=== PATIENT | female | born 1980 ===

== ENCOUNTER 2017-06-12 16:42 | Emergency (ER) | payer OTHER ==
[2017-06-12 17:09] VITALS: O2SAT 100
[2017-06-12] MEDS ORDERED: Sodium Chloride 0.9% 1,000 ML IV ONE (17:25)
[2017-06-12 17:51] LABS: BASO # 0.1 K/uL (0.0-0.2); BASO % 0.9 % (0.0-2.0); EOS # 0.3 K/uL (0.0-0.7); EOS % 3.4 % (0.0-4.0); HEMOGLOBIN 8.9 g/dL (11.0-16.0); LYMPH # 2.4 K/uL (1.0-4.3); LYMPH % 30.7 % (20.0-40.0); MEAN CELL VOLUME 81.5 fL (81.0-99.0); MEAN CORPUSCULAR HEMOGLOBIN 27.4 pg (27.0-31.0); MEAN CORPUSCULAR HGB CONC 33.7 g/dL (33.0-37.0); MEAN PLATELET VOLUME 8.3 fL (7.2-11.7); MONO # 0.6 K/uL (0.0-0.8); MONO % 7.3 % (0.0-10.0); NEUT # 4.6 K/uL (1.8-7.0); NEUT % 57.7 % (50.0-75.0); RBC 3.24 Mil/uL (3.80-5.20); RED CELL DISTRIBUTION WIDTH 15.9 % (11.5-14.5); WHITE BLOOD COUNT 7.9 K/uL (4.8-10.8)
--- NOTE | 2017-06-12 17:57 | C.PDOC ---
History Of Present Illness 37-year-old female, PMHx includes iron deficiency anemia, CKD, and Diabetes, presents to the emergency department with complaints of low hgb. Patient states she has been feeling fatigued, she went to see Dr Petersen last week, who called her saying her hgb was low, and referred to ED for further evaluation. Patient states she finished her menses last week, and it was heavy. Additionally patient reports Dr Petersen prescribed Sodium bicarb for her kidneys and states the medication makes her feel jittery. Denies fever, nausea/vomiting, back pain or dizziness. Time Seen by Provider: 06/12/17 17:18 Chief Complaint (Nursing): Abnormal Labs History Per: Patient History/Exam Limitations: no limitations Onset/Duration Of Symptoms: Days Current Symptoms Are (Timing): Still Present Severity: Moderate Past Medical History Reviewed: Historical Data, Nursing Documentation, Vital Signs Vital Signs: Last Vital Signs Temp 98.1 F 06/12/17 17:07 Pulse 89 06/12/17 17:07 Resp 20 06/12/17 17:07 BP 156/74 H 06/12/17 17:07 Pulse Ox 100 06/12/17 18:32 - Medical History PMH: Asthma, HTN, Chronic Kidney Disease Family History: States: No Known Family Hx - Social History Hx Tobacco Use: No Hx Alcohol Use: No Hx Substance Use: No - Immunization History Hx Influenza Vaccination: No Review Of Systems Constitutional: Positive for: Weakness. Negative for: Fever Respiratory: Negative for: Shortness of Breath Gastrointestinal: Negative for: Vomiting, Abdominal Pain Musculoskeletal: Negative for: Back Pain Neurological: Negative for: Dizziness Physical Exam - Physical Exam Appears: Non-toxic, No Acute Distress Skin: Warm, Dry, No Rash Head: Atraumatic, Normacephalic Eye(s): bilateral: PERRL, EOMI, right: Normal Inspection, left: Scleral Icterus (ptosis) Nose: Normal Oral Mucosa: Moist Lips: Normal Appearing Neck: Normal ROM Chest: Symmetrical Cardiovascular: Rhythm Regular, No Murmur Respiratory: Normal Breath Sounds, No Accessory Muscle Use Gastrointestinal/Abdominal: Soft, No Tenderness Extremity: Normal ROM, Pedal Edema (trace), No Deformity, No Swelling Neurological/Psych: Oriented x3, Normal Speech ED Course And Treatment - Laboratory Results Result Diagrams: 06/12/17 17:44 06/12/17 17:44 O2 Sat by Pulse Oximetry: 100 (RA) Pulse Ox Interpretation: Normal Medical Decision Making Medical Decision Making: Impression: Anemia Plan: * Bloodwork * IV NS * UA Progress: Labs reviewed Hgb is 8.[address] ePtersen to discuss labs [address] Lopez covering Dr Petersen. Reports labs Hgb 7.7 on 06/08/17 and Bun/Cr 32 and 5.9. If patient stable can follow up outpatient and next appointment is 06/22/17 Patient remained well in no acute distress. I explained lab results and there is no clinical indication for blood transfusion. Patient expressed understanding. She is hemodynamically stable for discharge. Disposition Counseled Patient/Family Regarding: Diagnosis, Need For Followup - Disposition Referrals: Christy Gamboa MD [Staff Provider] - Frankie Petersen MD [Staff Provider] - Disposition: HOME/ ROUTINE Disposition Time: 18:43 Condition: STABLE Additional Instructions: Continue with your current medications Follow up with your primary doctor You have appointment with DR Petersen for 06/22/17 Return to ER for any worsening symptoms Instructions: Anemia Caused by Low Iron, Adult (DC) Forms: [employer] [facility] ([place]) - POA Present On Arrival: None - Clinical Impression Clinical Impression: Iron deficiency anemia, CKD (chronic kidney disease) - Scribe Statement The provider has reviewed the documentation as recorded by the Scribe (Apoorva Miranda) All medical record entries made by the Scribe were at my direction and personally dictated by me. I have reviewed the chart and agree that the record accurately reflects my personal performance of the history, physical exam, medical decision making, and the department course for this patient. I have also personally directed, reviewed, and agree with the discharge instructions and disposition.
[2017-06-12 18:15] LABS: ALB/GLOB RATIO 1.2 (1.0-2.1); ALBUMIN 4.3 g/dL (3.5-5.0); AST/SGOT 17 U/L (14-36); BLOOD UREA NITROGEN 91 mg/dL (7-17); CALCIUM 9.1 mg/dl (8.6-10.4); GFR AFRICAN-AMERICAN 10; GFR NON-AFRICAN AMERICAN 9
[2017-06-12 18:17] LABS: ALT/SGPT < 6 U/L (9-52)
[2017-06-12 18:33] LABS: IRON 104 ug/dL (37-170)
[2017-06-12 18:42] LABS: % IRON SATURATION 30 (20-55); TOTAL IRON BINDING CAPACITY 346 ug/dL (250-450)
[2017-06-12 18:47] VITALS: BP 148/66; PULSE 82; RESP 18; TEMP 98.2
== END 2017-06-12 18:58 | disposition home or self-care (01) ==
LOC: C.ER 16:42
DX: D50.9 Iron deficiency anemia, unspecified (principal); I12.9 Hypertensive chronic kidney disease with stage 1 through stage 4 chronic kidney disease, or unspecified chronic kidney disease; E11.22 Type 2 diabetes mellitus with diabetic chronic kidney disease; N18.9 Chronic kidney disease, unspecified
CPT/HCPCS: 80053; 83540; 83550; 85025; 85610; 85730; 86850; 86900; 96360; 99282; J7040